=== PATIENT | female | born 1995 | race Caucasian/White ===

== ENCOUNTER 2017-07-02 18:52 | Emergency (ER) | payer BC ==
[~2017-07-02] VITALS: Ht 165.1 cm; Wt 102.6 kg
[~2017-07-02 18:52] MED LIST: FLONASE16 G1 BOTH NARES; LEVAQUIN750 MG PO; Motrin PO; NAPROSYN500 MG PO; PEPCID20 MG PO; PEPCID40 MG PO; PREDNISONE20 MG PO; Percocet 5/325,Endoc PO; TRI-SPRINTEC1 EACH PO; TYLENOL EXTRA500 MG PO; ZOFRAN4 MG PO
[2017-07-02] MEDS ORDERED: LEVAQUIN750 MG PO (21:33)
[2017-07-02] MEDS ORDERED: ROBITUSSIN AC,T10 ML PO (21:33)
[2017-07-02 21:41] VITALS: BP 121/84
== END 2017-07-02 21:42 | disposition home or self-care (01) ==
LOC: EME 18:52
DX: J18.9 Pneumonia, unspecified organism (principal); Z88.0 Allergy status to penicillin; Z87.01 Personal history of pneumonia (recurrent)
CPT/HCPCS: 71020; 99281; 99283